=== PATIENT | male | born 1940 | race Caucasian/White ===

== ENCOUNTER 2016-09-02 10:27 | Outpatient (CLI) | payer MEDICARE, BC ==
[2016-09-02 14:07] LABS: HEMOGLOBIN A1C 0.66 g/dL
[2016-09-02 14:12] LABS: ALBUMIN/GLOBULIN RATIO 1.6 (1.0-2.2); BILIRUBIN,TOTAL 0.8 mg/dL (0.2-1.0); BUN - BLOOD UREA NITROGEN 22 mg/dL (6-20); CALCIUM 9.1 mg/dL (8.5-10.3); CARBON DIOXIDE - CO2 25 mmol/L (21-32); CHLORIDE 108 mmol/L (101-111); CHOL/HDL RATIO 5.2 (<5.0); CHOLESTEROL 156 mg/dL; GFR - MDRD 72 (>89); GLUCOSE 107 mg/dL (70-100); HDL CHOLESTEROL 30 mg/dL; LDL/HDL RATIO 3.5 (<3.6); POTASSIUM 4.2 mmol/L (3.5-5.0); SODIUM 140 mmol/L (135-145); TOTAL PROTEIN 6.9 g/dL (6.7-8.2); TRIGLYCERIDES 111 mg/dL; VLDL CHOLESTEROL 22 mg/dL
== END 2016-09-02 10:28 | disposition home or self-care (01) ==
LOC: LAB.WCP 10:27
PROVIDERS: ATTEND Family Medicine
DX: R73.01 Impaired fasting glucose (principal); E78.9 Disorder of lipoprotein metabolism, unspecified
CPT/HCPCS: 36415; 80053; 80061; 83036

== ENCOUNTER 2016-09-09 05:11 | Outpatient (CLI) | payer MEDICARE, BC | END 2016-09-09 05:12 | disposition home or self-care (01) | LOC: LAB.R 05:11 | PROVIDERS: ATTEND Family Medicine | DX: R35.8 Other polyuria (principal) | CPT/HCPCS: 87086 ==

== ENCOUNTER 2016-09-24 09:43 | Outpatient (CLI) | payer MEDICARE, BC ==
[2016-09-24 13:17] LABS: BASOPHILS % (AUTO) 0.5 %; EOSINOPHILS # (AUTO) 0.1 10^3/uL (0.0-0.7); HCT - HEMATOCRIT 52.1 % (42.0-52.0); HGB - HEMOGLOBIN 17.5 g/dL (14.0-18.0); LYMPHOCYTES # (AUTO) 2.7 10^3/uL (1.5-3.5); LYMPHOCYTES % (AUTO) 26.9 %; MEAN CORPUSCULAR HEMOGLOBIN 30.9 pg (27.0-31.0); MEAN CORPUSCULAR HGB CONC 33.6 g/dL (32.0-36.0); MEAN CORPUSCULAR VOLUME 91.9 fL (80.0-94.0); MEAN PLATELET VOLUME 11.1 fL (7.4-11.4); MONOCYTES # (AUTO) 0.7 10^3/uL (0.0-1.0); NEUTROPHILS # (AUTO) 6.4 10^3/uL (1.5-6.6); NEUTROPHILS % (AUTO) 64.6 %; NUCLEATED RED BLOOD CELLS AUTO 0.1 /100WBC; RED BLOOD COUNT 5.67 10^6/uL (4.70-6.10); RED CELL DISTRIBUTION WIDTH 13.5 % (12.0-15.0); UNCORRECTED WHITE BLOOD COUNT 9.9 x10^3/uL; WHITE BLOOD COUNT 9.9 x10^3/uL (4.8-10.8)
[2016-09-24 13:52] LABS: ALBUMIN/GLOBULIN RATIO 1.3 (1.0-2.2); BILIRUBIN,TOTAL 0.8 mg/dL (0.2-1.0); CALCIUM 9.3 mg/dL (8.5-10.3); POTASSIUM 3.7 mmol/L (3.5-5.0); TOTAL PROTEIN 7.4 g/dL (6.7-8.2)
== END 2016-09-24 09:44 | disposition home or self-care (01) ==
LOC: LAB.WCP 09:43
PROVIDERS: ATTEND Family Medicine
DX: R35.8 Other polyuria (principal); I10 Essential (primary) hypertension; R73.01 Impaired fasting glucose; R53.83 Other fatigue
CPT/HCPCS: 36415; 80053; 85025

== ENCOUNTER 2016-10-03 09:12 | Outpatient (CLI) | payer MEDICARE, BC ==
--- NOTE | 2016-10-03 14:00 | CT Report ---
EXAM: CT HEAD EXAM DATE: 10/03/2016 09:27 AM. CLINICAL HISTORY: Elevated liver enzymes, claudication and carotid bruit. COMPARISON: None. TECHNIQUE: Multiaxial CT images were obtained from the foramen magnum to the vertex. IV contrast: Non e. Reformats: Coronal. In accordance with CT protocol optimization, one or more of the following dose reduction techniques w ere utilized for this exam: automated exposure control, adjustment of mA and/or KV based on patient s ize, or use of iterative reconstructive technique. FINDINGS: Parenchyma: No intracranial bleed or mass effect. Moderate low density in the deep white matter. Extraaxial Spaces: Normal for age. No subdural or epidural collections identified. Ventricles: Normal in size and position. Sinuses: Imaged paranasal sinuses, orbits, and mastoids show no significant abnormality. Bones: No evidence of fracture or calvarial defect. Other: None. IMPRESSION: 1. No intracranial bleed or mass effect. 2. Nonspecific white matter disease, likely microangiopathy. [facility] Referring Provider Line: [phone] SITE ID: [id number]
--- NOTE | 2016-10-04 05:49 | Ultrasound Report ---
EXAM: CAROTID DOPPLER ULTRASOUND EXAM DATE: 10/03/2016 10:55 AM. CLINICAL HISTORY: Dizziness/vertigo, carotid bruit. COMPARISON: None. TECHNIQUE: Real-time sonographic vascular imaging was performed by the healthcare liaison through the caroti d arterial system with a linear transducer utilizing color-flow, Doppler flow and spectral analysis. 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 FINDINGS: Right: RCCA Prox: PSV 64 cm/sec. RCCA Dist: PSV 44 cm/sec, EDV 12 cm/sec. RECA: PSV 45 cm/sec. R Bulb: PSV 33 cm/sec, EDV 12 cm/sec, ICA/CCA ratio 0.75. LESA Prox: PSV 67 cm/sec, EDV 13 cm/sec, ICA/CCA ratio 1.5. LESA Mid: PSV 55 cm/sec, EDV 14 cm/sec, ICA/CCA ratio 1.2. LESA Dist: PSV 38 cm/sec, EDV 17 cm/sec, ICA/CCA ratio 1.3. RVA: PSV 41 cm/sec. RVA flow direction: Antegrade. Left: LCCA Prox: PSV 65 cm/sec. LCCA Dist: PSV 37 cm/sec, EDV 0.2 cm/sec. LECA: PSV 33 cm/sec. L Bulb: PSV 28 cm/sec, EDV 9 cm/sec, ICA/CCA ratio 0.79. LICA Prox: PSV 91 cm/sec, EDV 18 cm/sec, ICA/CCA ratio 2.4. LICA Mid: PSV 75 cm/sec, EDV 17 cm/sec, ICA/CCA ratio 2.0. LICA Dist: PSV 78 cm/sec, EDV 15 cm/sec, ICA/CCA ratio 2.1. LVA: PSV 32 cm/sec. LVA flow direction: Antegrade. Other: Mildatherosclerotic disease bilaterally. IMPRESSION: Mild atherosclerotic disease bilaterally without hemodynamically significant stenoses see n in either carotid arterial system. Validated velocity measurements with angiographic measurements and velocity criteria are extrapolated from diameter data as defined by the Society of Radiologists in Ultrasound Consensus Conference Radi ology 2003; 229;340-346. [facility] Referring Provider Line: [phone] SITE ID: [id number]
== END 2016-10-03 09:13 | disposition home or self-care (01) ==
LOC: DI 09:12
PROVIDERS: ATTEND Family Medicine
DX: R42 Dizziness and giddiness (principal); R90.82 White matter disease, unspecified
CPT/HCPCS: 70450; 93880

== ENCOUNTER 2017-10-13 18:42 | Emergency (ER) | payer MEDICARE, BC ==
[2017-10-13 19:19] LABS: BASOPHILS # (AUTO) 0.1 10^3/uL (0.0-0.1); BASOPHILS % (AUTO) 0.7 %; EOSINOPHILS # (AUTO) 0.1 10^3/uL (0.0-0.7); EOSINOPHILS % (AUTO) 1.8 %; HGB - HEMOGLOBIN 18.1 g/dL (14.0-18.0); LYMPHOCYTES # (AUTO) 2.1 10^3/uL (1.5-3.5); LYMPHOCYTES % (AUTO) 28.5 %; MEAN CORPUSCULAR HGB CONC 33.4 g/dL (32.0-36.0); MEAN CORPUSCULAR VOLUME 92.8 fL (80.0-94.0); MEAN PLATELET VOLUME 10.2 fL (7.4-11.4); MONOCYTES # (AUTO) 0.9 10^3/uL (0.0-1.0); MONOCYTES % (AUTO) 13.1 %; NEUTROPHILS % (AUTO) 55.9 %; PLT - PLATELET COUNT 182 10^3/uL (130-450); RED BLOOD COUNT 5.82 10^6/uL (4.70-6.10); RED CELL DISTRIBUTION WIDTH 13.6 % (12.0-15.0); WHITE BLOOD COUNT 7.2 x10^3/uL (4.8-10.8)
[2017-10-13 19:24] VITALS: BP 142/100
[2017-10-13 19:33] LABS: ALBUMIN 4.6 g/dL (3.2-5.5); ALBUMIN/GLOBULIN RATIO 1.4 (1.0-2.2); BILIRUBIN,TOTAL 0.8 mg/dL (0.2-1.0); CALCIUM 9.5 mg/dL (8.5-10.3); CREATININE 0.9 mg/dL (0.6-1.2)
--- NOTE | 2017-10-13 20:08 | XRAY Report ---
Procedure Date: 10/13/2017 Accession Number: [id number] / [id number] Procedure: XR - Chest 2 View X-Ray CPT Code: 78064 FULL RESULT: EXAM: CHEST RADIOGRAPHY EXAM DATE: 10/13/2017 07:47 PM. CLINICAL HISTORY: Productive cough. COMPARISON: Chest 04/02/2012. TECHNIQUE: 2 views. FINDINGS: Lungs/Pleura: No focal opacities evident. No pleural effusion. No pneumothorax. Normal volumes. Mediastinum: Normal heart size. Tortuous descending thoracic aorta again noted. IMPRESSION: No acute cardiopulmonary disease seen. [facility]
[2017-10-13] MEDS ORDERED: ALBUTEROL NEB 2.5 MG/3 ML INH STA (21:14)
[2017-10-13] MEDS ORDERED: guaiFENesin/CODEINE 5 ML UDC PO STA (21:45)
--- NOTE | 2017-10-13 21:57 | ED Physician Documentation ---
PD HPI DYSPNEA - Stated complaint Stated Complaint: HBP CONCERNS - Chief complaint Chief Complaint: Resp - History obtained from History obtained from: Patient - History of Present Illness Timing - onset: How many days ago (3) Timing - details: Gradual onset, Intermittant Associated symptoms: Cough. No: Fever, Wheezing, Chest pain / discomfort Similar symptoms before: No diagnosis Recently seen: Not recently seen - Additional information Additional information: Patient is a 77 year old male who is presenting to the emergency department for cough. patient states that it has been going on for the last few days. patient states that it keeps him up at night and he just trying to get help to get him sleep. 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 Review of Systems Ten Systems: 10 systems reviewed and negative Constitutional: denies: Fever, Chills Respiratory: reports: Dyspnea, Cough. denies: Wheezing PD PAST MEDICAL HISTORY - Past Medical History Past Medical History: Yes Cardiovascular: Hypertension Psych: Anxiety - Past Surgical History Past Surgical History: Yes General: Cholecystectomy - Present Medications Home Medications: Ambulatory Orders Medication Instructions Recorded Confirmed Benzonatate [Tessalon Perle] 100 mg PO TID #20 capsule 10/13/17 Codeine Phosphate/Guaifenesin 5 ml PO DAILY #100 ml 10/13/17 [Guaifen-Codeine 100-10 mg/5 ml] Lisinopril [Zestril] 40 mg PO 10/13/17 Metoprolol Tartrate 50 mg PO 10/13/17 PARoxetine [Paxil] 20 mg PO DAILY 10/13/17 10/13/17 amLODIPine [Norvasc] 10 mg PO DAILY 10/13/17 10/13/17 - Allergies Allergies/Adverse Reactions: Allergies Allergy/AdvReac Type Severity Reaction Status Date / Time No Known Drug Allergies Allergy Verified 10/13/17 19:26 - Social History Does the pt smoke?: No Smoking Status: Never smoker Does the pt drink ETOH?: No Does the pt have substance abuse?: No - Immunizations Immunizations are current?: Yes - POLST Patient has POLST: No PD ED PE NORMAL - Vitals Vital signs reviewed: Yes - General General: Alert and oriented X 3, No acute distress - HEENT HEENT: Atraumatic - Neck Neck: Supple, no meningeal sign - Cardiac Cardiac: RRR, No murmur - Respiratory Respiratory: Clear bilaterally - Abdomen Abdomen: Soft, Non tender, Non distended - Derm Derm: Normal color, Warm and dry, No rash - Extremities Extremities: No deformity, No edema - Neuro Neuro: Alert and oriented X 3, 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, No motor deficit, Normal speech Eye Opening: Spontaneous Motor: Obeys Commands Verbal: Oriented GCS Score: 15 Results - Vitals Vitals: Vital Signs - 24 hr 10/13/17 10/13/17 19:21 21:38 Temperature 36.8 C Heart Rate 58 L 61 Respiratory 18 18 Rate Blood Pressure 142/100 H O2 Saturation 99 Oxygen O2 Source Room air - Labs Labs: Laboratory Tests 10/13/17 10/13/17 10/13/17 19:13 19:13 19:13 WBC 7.2 RBC 5.82 Hgb 18.1 H Hct 54.0 H MCV 92.8 MCH 31.0 MCHC 33.4 RDW 13.6 Plt Count 182 MPV 10.2 Neut # (Auto) 4.0 Lymph # (Auto) 2.1 [place] # (Auto) 0.9 Eos # (Auto) 0.1 Baso # (Auto) 0.1 Absolute Nucleated RBC 0.00 Nucleated RBC % 0.0 Sodium 138 Potassium 4.1 Chloride 104 Carbon Dioxide 25 Anion Gap 9.0 BUN 12 Creatinine 0.9 Estimated GFR (MDRD) 81 L Glucose 142 H Calcium 9.5 Total Bilirubin 0.8 AST 26 ALT 41 Alkaline Phosphatase 102 Troponin I < 0.04 B-Natriuretic Peptide Total Protein 8.0 Albumin 4.6 Globulin 3.4 Albumin/Globulin Ratio 1.4 Lipase 20 L 10/13/17 19:13 WBC RBC Hgb Hct MCV MCH MCHC RDW Plt Count MPV Neut # (Auto) Lymph # (Auto) [place] # (Auto) Eos # (Auto) Baso # (Auto) Absolute Nucleated RBC Nucleated RBC % Sodium Potassium Chloride Carbon Dioxide Anion Gap BUN Creatinine Estimated GFR (MDRD) Glucose Calcium Total Bilirubin AST ALT Alkaline Phosphatase Troponin I B-Natriuretic Peptide 28 Total Protein Albumin Globulin Albumin/Globulin Ratio Lipase - Rads (name of study) chest x-ray Radiology: Final report received (normal) PD MEDICAL DECISION MAKING - ED course Complexity details: reviewed old records, reviewed results, re-evaluated patient , considered differential, d/w patient ED course: Patient was seen and examined at bedside. patient was well appearing and in no acute distress. labs were drawn and imaging was ordered. patient was treated with a duoneb with no change in his cough. patient's diagnostics were otherwise within normal limits. patient required no further inpatient work up at this time and was stable for discharge with outpatient follow up. - Sepsis Event Vital Signs: Vital Signs - 24 hr 10/13/17 10/13/17 19:21 21:38 Temperature 36.8 C Heart Rate 58 L 61 Respiratory 18 18 Rate Blood Pressure 142/100 H O2 Saturation 99 Oxygen O2 Source Room air Departure - Departure Disposition: Home, Self Care Clinical Impression: Cough Condition: Good Instructions: Cold Virus Follow-Up: Russ Menezes MD [Primary Care Provider] - Within 3 Days Prescriptions: Benzonatate [Tessalon Perle] 100 mg PO TID #20 capsule Codeine Phosphate/Guaifenesin [Guaifen-Codeine 100-10 mg/5 ml] 5 ml PO DAILY # 100 ml Comments: Your diagnostics today were within normal limits. there were no major abnormalities on you x-ray or your blood work. You have been prescribed two types of medications. The medicine with codeine you should only take at night before bed. the tessalon you can take at any point during the day. You should follow up with your doctor if your symptoms don't improve over the next few days. You may return to the emergency department at any time for new, worsening or uncontrollable symptoms. Discharge Date/Time: 10/13/17 22:08
== END 2017-10-13 22:08 | disposition home or self-care (01) ==
LOC: ED 18:42
DX: R05 Cough (principal); I10 Essential (primary) hypertension; F41.9 Anxiety disorder, unspecified
CPT/HCPCS: 36415; 71046; 80053; 83690; 83880; 84484; 85025; 94640; 99283; A9270

== ENCOUNTER 2017-11-05 21:18 | Emergency (ER) | payer MEDICARE, BC ==
--- NOTE | 2017-11-05 22:58 | ED Physician Documentation ---
PD HPI ABD PAIN - Stated complaint Stated Complaint: ABD PX/SHAKY - Chief complaint Chief Complaint: General - History obtained from History obtained from: Patient, Family - History of Present Illness Timing - onset: How many days ago (3-4) Timing - details: Intermittant Quality: Dull Location: RUQ, Epigastric Improved by: Other (no ameliorating factors) Worsened by: Other (no exacerbating factors) Associated symptoms: No: Fever, Nausea, Vomiting, Diarrhea, Constipation, Dysuria Recently seen: Emergency Dept - Additional information Additional information: patients chief complaint is that he is unable to sleep for 3-4 days. When I ask why he cant sleep, he says he just closes his eyes but cannot fall asleep. He also c/o episodes of epigastric and RUQ abdominal discomfort, which he can only describe as nerve pain, although he says this is not what is preventing him from sleeping. he says he has had similar nerve pain before, episodically over 10 years. he was T+R from this ED three weeks ago for cough, rx for benzonatate and Robitussin AC. He says the cough has nearly resolved, and that the cough is also not contributing to his lack of sleep. He says he has been taking the codeine cough syrup to facilitate sleep without results. Review of Systems Constitutional: reports: Reviewed and negative Cardiac: reports: Reviewed and negative Respiratory: reports: Cough. denies: Dyspnea GI: reports: Abdominal Pain. denies: Nausea, Vomiting, Constipation, Diarrhea : denies: Dysuria, Frequency PD PAST MEDICAL HISTORY - Past Medical History Cardiovascular: Hypertension Psych: Anxiety - Past Surgical History Past Surgical History: Yes General: Cholecystectomy - Present Medications Home Medications: Ambulatory Orders Medication Instructions Recorded Confirmed Benzonatate [Tessalon Perle] 100 mg PO TID #20 capsule 10/13/17 Codeine Phosphate/Guaifenesin 5 ml PO DAILY #100 ml 10/13/17 [Guaifen-Codeine 100-10 mg/5 ml] Lisinopril [Zestril] 40 mg PO 10/13/17 Metoprolol Tartrate 50 mg PO 10/13/17 PARoxetine [Paxil] 20 mg PO DAILY 10/13/17 10/13/17 amLODIPine [Norvasc] 10 mg PO DAILY 06/27/18 06/27/18 LORazepam [Ativan] 1 - 2 mg PO HS PRN #20 tablet 11/06/17 - Allergies Allergies/Adverse Reactions: Allergies Allergy/AdvReac Type Severity Reaction Status Date / Time No Known Drug Allergies Allergy Verified 11/05/17 21:28 - Social History Does the pt smoke?: No Smoking Status: Never smoker Does the pt drink ETOH?: No Does the pt have substance abuse?: No - Immunizations Immunizations are current?: Yes - POLST Patient has POLST: No PD ED PE NORMAL - Vitals Vital signs reviewed: Yes - General General: Alert and oriented X 3, No acute distress, Well developed/nourished - HEENT HEENT: PERRL, EOMI, Moist mucous membranes - Cardiac Cardiac: RRR - Respiratory Respiratory: No respiratory distress, Clear bilaterally - Abdomen Abdomen: Normal bowel sounds, Soft, Non tender, Non distended - Derm Derm: Normal color, Warm and dry - Neuro Neuro: Alert and oriented X 3, 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, No motor deficit, No sensory deficit, Normal speech Eye Opening: Spontaneous Motor: Obeys Commands Verbal: Oriented GCS Score: 15 Results - Vitals Vitals: Oxygen O2 Source Room air - Labs Labs: Laboratory Tests 11/05/17 11/05/17 23:41 23:41 WBC 12.0 H RBC 5.20 Hgb 15.9 Hct 47.6 MCV 91.5 MCH 30.6 MCHC 33.4 RDW 13.5 Plt Count 171 MPV 10.5 Neut # (Auto) 6.9 H Lymph # (Auto) 3.8 H [place] # (Auto) 0.9 Eos # (Auto) 0.1 Baso # (Auto) 0.1 Absolute Nucleated RBC 0.01 Nucleated RBC % 0.1 Sodium 138 Potassium 3.8 Chloride 103 Carbon Dioxide 28 Anion Gap 7.0 BUN 19 Creatinine 1.0 Estimated GFR (MDRD) 72 L Glucose 126 H Calcium 9.1 Total Bilirubin 0.9 AST 23 ALT 44 Alkaline Phosphatase 86 Total Protein 6.9 Albumin 4.0 Globulin 2.9 Albumin/Globulin Ratio 1.4 Lipase 24 PD MEDICAL DECISION MAKING - ED course Complexity details: reviewed old records, reviewed results, re-evaluated patient , considered differential, d/w patient, d/w family ED course: reassuring lab test results. during H+P and reevaluation, patient repeatedly returns to request for something to knock me out so I can get some sleep. He says he was prescribed something to help with sleep several years ago by his PMD that worked well, but unfortunately he cannot recall what it was. Will rx lorazepam and dose given in ED prior to d/c (spouse is driving patient home). - Sepsis Event Vital Signs: Oxygen O2 Source Room air Departure - Departure Disposition: Home, Self Care Clinical Impression: Insomnia Qualifiers: Insomnia type: unspecified Qualified Code(s): G47.00 - Insomnia, unspecified Abdominal pain Qualifiers: Abdominal location: generalized Qualified Code(s): R10.84 - Generalized abdominal pain Condition: Good Instructions: ED Insomnia, ED Abdominal Pain Unkn Cause Male Follow-Up: LOKESH DUPONT MD [Primary Care Provider] - Within 1 week Prescriptions: LORazepam [Ativan] 1 - 2 mg PO HS PRN #20 tablet PRN Reason: Insomnia Discharge Date/Time: 11/06/17 01:19
[2017-11-05 23:52] LABS: BASOPHILS # (AUTO) 0.1 10^3/uL (0.0-0.1); BASOPHILS % (AUTO) 1.1 %; EOSINOPHILS # (AUTO) 0.1 10^3/uL (0.0-0.7); EOSINOPHILS % (AUTO) 1.2 %; HGB - HEMOGLOBIN 15.9 g/dL (14.0-18.0); LYMPHOCYTES # (AUTO) 3.8 10^3/uL (1.5-3.5); LYMPHOCYTES % (AUTO) 32.1 %; MEAN CORPUSCULAR HEMOGLOBIN 30.6 pg (27.0-31.0); MEAN CORPUSCULAR HGB CONC 33.4 g/dL (32.0-36.0); MEAN CORPUSCULAR VOLUME 91.5 fL (80.0-94.0); MEAN PLATELET VOLUME 10.5 fL (7.4-11.4); MONOCYTES # (AUTO) 0.9 10^3/uL (0.0-1.0); MONOCYTES % (AUTO) 7.7 %; NEUTROPHILS # (AUTO) 6.9 10^3/uL (1.5-6.6); NEUTROPHILS % (AUTO) 57.9 %; PLT - PLATELET COUNT 171 10^3/uL (130-450); RED CELL DISTRIBUTION WIDTH 13.5 % (12.0-15.0)
[2017-11-06 00:01] LABS: ALBUMIN/GLOBULIN RATIO 1.4 (1.0-2.2); BILIRUBIN,TOTAL 0.9 mg/dL (0.2-1.0); CALCIUM 9.1 mg/dL (8.5-10.3); TOTAL PROTEIN 6.9 g/dL (6.7-8.2)
[2017-11-06 00:34] VITALS: BP 149/88
[2017-11-06] MEDS ORDERED: LORazepam 0.5 MG TABLET PO STA (01:09)
== END 2017-11-06 01:19 | disposition home or self-care (01) ==
LOC: ED 21:18
DX: G47.00 Insomnia, unspecified (principal); R10.84 Generalized abdominal pain
CPT/HCPCS: 36415; 80053; 83690; 85025; 99283; A9270

== ENCOUNTER 2019-09-05 08:00 | Outpatient (CLI) | payer MEDICARE, OTHER ==
[2019-09-05 13:47] LABS: BASOPHILS % (AUTO) 0.4 %; EOSINOPHILS # (AUTO) 0.1 10^3/uL (0.0-0.7); EOSINOPHILS % (AUTO) 1.6 %; HGB - HEMOGLOBIN 17.1 g/dL (14.0-18.0); LYMPHOCYTES # (AUTO) 2.9 10^3/uL (1.5-3.5); LYMPHOCYTES % (AUTO) 37.9 %; MEAN CORPUSCULAR HEMOGLOBIN 31.2 pg (27.0-31.0); MEAN CORPUSCULAR HGB CONC 33.1 g/dL (32.0-36.0); MEAN CORPUSCULAR VOLUME 94.2 fL (80.0-94.0); MONOCYTES # (AUTO) 0.7 10^3/uL (0.0-1.0); MONOCYTES % (AUTO) 8.8 %; NEUTROPHILS # (AUTO) 3.9 10^3/uL (1.5-6.6); PLT - PLATELET COUNT 187 10^3/uL (130-450); RED BLOOD COUNT 5.48 10^6/uL (4.70-6.10); RED CELL DISTRIBUTION WIDTH 13.9 % (12.0-15.0); WHITE BLOOD COUNT 7.7 x10^3/uL (4.8-10.8)
[2019-09-05 14:17] LABS: ALBUMIN 4.2 g/dL (3.2-5.5); ALBUMIN/GLOBULIN RATIO 1.3 (1.0-2.2); ALKALINE PHOSPHATASE 95 IU/L (42-121); ALT ALANINE AMINOTRANSFERASE 41 IU/L (10-60); AST ASPARTATE AMINOTRANSFERASE 24 IU/L (10-42); BILIRUBIN,TOTAL 0.9 mg/dL (0.2-1.0); BUN - BLOOD UREA NITROGEN 24 mg/dL (6-20); CALCIUM 9.4 mg/dL (8.5-10.3); CARBON DIOXIDE - CO2 25 mmol/L (21-32); CHLORIDE 107 mmol/L (101-111); CHOL/HDL RATIO 4.5 (<5.0); CHOLESTEROL 158 mg/dL; CREATININE 0.9 mg/dL (0.6-1.2); GLUCOSE 117 mg/dL (70-100); HDL CHOLESTEROL 35 mg/dL; LDL CHOLESTEROL,CALCULATED 100 mg/dL; LDL/HDL RATIO 2.9 (<3.6); SODIUM 142 mmol/L (135-145); TOTAL PROTEIN 7.4 g/dL (6.7-8.2); VLDL CHOLESTEROL 23 mg/dL
[2019-09-05 14:20] LABS: HB2 TOTAL 18.2 g/dL; HEMOGLOBIN A1C 0.73 g/dL; HEMOGLOBIN A1C % 5.8 % (4.6-6.2)
== END 2019-09-05 23:59 | disposition home or self-care (01) ==
LOC: LAB.WCP 08:00
PROVIDERS: ATTEND Family Medicine
DX: I10 Essential (primary) hypertension (principal); E78.5 Hyperlipidemia, unspecified; R73.01 Impaired fasting glucose
CPT/HCPCS: 36415; 80053; 80061; 83036; 83721; 85025

== ENCOUNTER 2020-09-17 08:53 | Outpatient (CLI) | payer MEDICARE, OTHER ==
[2020-09-17 09:17] LABS: BASOPHILS % (AUTO) 0.5 %; EOSINOPHILS # (AUTO) 0.1 10^3/uL (0.0-0.7); EOSINOPHILS % (AUTO) 1.4 %; HGB - HEMOGLOBIN 16.5 g/dL (14.0-18.0); LYMPHOCYTES # (AUTO) 3.1 10^3/uL (1.5-3.5); LYMPHOCYTES % (AUTO) 36.8 %; MEAN CORPUSCULAR HEMOGLOBIN 30.6 pg (27.0-31.0); MEAN CORPUSCULAR VOLUME 92.8 fL (80.0-94.0); MEAN PLATELET VOLUME 12.4 fL (7.4-11.4); MONOCYTES # (AUTO) 0.8 10^3/uL (0.0-1.0); NEUTROPHILS # (AUTO) 4.3 10^3/uL (1.5-6.6); NEUTROPHILS % (AUTO) 51.2 %; PLT - PLATELET COUNT 175 10^3/uL (130-450); RED BLOOD COUNT 5.39 10^6/uL (4.70-6.10); RED CELL DISTRIBUTION WIDTH 14.1 % (12.0-15.0); WHITE BLOOD COUNT 8.4 x10^3/uL (4.8-10.8)
[2020-09-17 09:50] LABS: THYROID STIMULATING HORMONE 1.6 uIU/mL (0.34-5.60)
[2020-09-17 10:50] LABS: ALBUMIN 4.2 g/dL (3.2-5.5); ALBUMIN/GLOBULIN RATIO 1.5 (1.0-2.2); ALKALINE PHOSPHATASE 95 IU/L (42-121); ALT ALANINE AMINOTRANSFERASE 30 IU/L (10-60); AST ASPARTATE AMINOTRANSFERASE 18 IU/L (10-42); BILIRUBIN,TOTAL 0.8 mg/dL (0.2-1.0); BUN - BLOOD UREA NITROGEN 23 mg/dL (6-20); CARBON DIOXIDE - CO2 26 mmol/L (21-32); CHLORIDE 103 mmol/L (101-111); CHOLESTEROL 175 mg/dL; CREATININE 0.9 mg/dL (0.6-1.2); GFR - MDRD 81 (>89); GLUCOSE 117 mg/dL (70-100); HDL CHOLESTEROL 29 mg/dL; LDL CHOLESTEROL,CALCULATED 119 mg/dL; LDL/HDL RATIO 4.1 (<3.6); POTASSIUM 3.9 mmol/L (3.5-5.0); SODIUM 138 mmol/L (135-145); TRIGLYCERIDES 136 mg/dL; VLDL CHOLESTEROL 27 mg/dL
== END 2020-09-17 08:54 | disposition home or self-care (01) ==
LOC: LAB 08:53
PROVIDERS: ATTEND Family Medicine
DX: Z00.00 Encounter for general adult medical examination without abnormal findings (principal); I10 Essential (primary) hypertension; E78.5 Hyperlipidemia, unspecified; N40.1 Benign prostatic hyperplasia with lower urinary tract symptoms; N13.8 Other obstructive and reflux uropathy
CPT/HCPCS: 36415; 80053; 80061; 83721; 84153; 84443; 85025

== ENCOUNTER 2021-10-25 08:23 | Outpatient (CLI) | payer MEDICARE, OTHER ==
[2021-10-25 09:38] LABS: CHOL/HDL RATIO 4.2 (<5.0); CHOLESTEROL 130 mg/dL; HDL CHOLESTEROL 31 mg/dL; LDL CHOLESTEROL,CALCULATED 75 mg/dL; LDL/HDL RATIO 2.4 (<3.6); TRIGLYCERIDES 121 mg/dL; VLDL CHOLESTEROL 24 mg/dL
== END 2021-10-25 08:24 | disposition home or self-care (01) ==
LOC: LAB 08:23
PROVIDERS: ATTEND Family Medicine
DX: I10 Essential (primary) hypertension (principal)
CPT/HCPCS: 36415; 80061; 83721

== ENCOUNTER 2022-09-09 08:28 | Outpatient (CLI) | payer MEDICARE, OTHER ==
[2022-09-09 08:57] LABS: BASOPHILS % (AUTO) 0.5 %; EOSINOPHILS # (AUTO) 0.1 10^3/uL (0.0-0.7); EOSINOPHILS % (AUTO) 1.4 %; HCT - HEMATOCRIT 49.2 % (42.0-52.0); HGB - HEMOGLOBIN 16.3 g/dL (14.0-18.0); LYMPHOCYTES # (AUTO) 2.6 10^3/uL (1.5-3.5); LYMPHOCYTES % (AUTO) 35.5 %; MEAN CORPUSCULAR HEMOGLOBIN 30.7 pg (27.0-31.0); MEAN CORPUSCULAR HGB CONC 33.1 g/dL (32.0-36.0); MEAN CORPUSCULAR VOLUME 92.7 fL (80.0-94.0); MONOCYTES # (AUTO) 0.7 10^3/uL (0.0-1.0); NEUTROPHILS # (AUTO) 3.9 10^3/uL (1.5-6.6); NEUTROPHILS % (AUTO) 53.3 %; PLT - PLATELET COUNT 176 10^3/uL (130-450); RED BLOOD COUNT 5.31 10^6/uL (4.70-6.10); RED CELL DISTRIBUTION WIDTH 13.8 % (12.0-15.0); WHITE BLOOD COUNT 7.4 x10^3/uL (4.8-10.8)
[2022-09-09 09:19] LABS: ALBUMIN 4.2 g/dL (3.2-5.5); ALBUMIN/GLOBULIN RATIO 1.3 (1.0-2.2); ALKALINE PHOSPHATASE 75 IU/L (42-121); ALT ALANINE AMINOTRANSFERASE 27 IU/L (10-60); AST ASPARTATE AMINOTRANSFERASE 17 IU/L (10-42); BILIRUBIN,TOTAL 1.1 mg/dL (0.2-1.0); BUN - BLOOD UREA NITROGEN 18 mg/dL (6-20); CALCIUM 8.8 mg/dL (8.5-10.3); CARBON DIOXIDE - CO2 28 mmol/L (21-32); CHLORIDE 108 mmol/L (101-111); CHOLESTEROL 129 mg/dL; CREATININE 0.9 mg/dL (0.6-1.2); GFR - MDRD 80 (>89); GLUCOSE 130 mg/dL (70-100); HDL CHOLESTEROL 32 mg/dL; LDL CHOLESTEROL,CALCULATED 72 mg/dL; LDL/HDL RATIO 2.3 (<3.6); POTASSIUM 4.1 mmol/L (3.5-5.0); SODIUM 142 mmol/L (135-145); TOTAL PROTEIN 7.4 g/dL (6.7-8.2); TRIGLYCERIDES 123 mg/dL; VLDL CHOLESTEROL 25 mg/dL
[2022-09-09 09:28] LABS: THYROID STIMULATING HORMONE 1.26 uIU/mL (0.34-5.60)
[2022-09-09 11:41] LABS: ESTIMATED AVERAGE GLUCOSE 131 mg/dL (70-100); HEMOGLOBIN A1c% 6.2 % (4.27-6.07)
== END 2022-09-09 08:29 | disposition home or self-care (01) ==
LOC: LAB 08:28
PROVIDERS: ATTEND Family Medicine
DX: I10 Essential (primary) hypertension (principal); Z12.5 Encounter for screening for malignant neoplasm of prostate; E11.39 Type 2 diabetes mellitus with other diabetic ophthalmic complication; N40.1 Benign prostatic hyperplasia with lower urinary tract symptoms; N13.8 Other obstructive and reflux uropathy
CPT/HCPCS: 36415; 80053; 80061; 83036; 84443; 85025; G0103; 83721; 84153

== ENCOUNTER 2023-04-21 20:28 | Emergency (ER) | payer MEDICARE, OTHER ==
[2023-04-21 21:00] LABS: BASOPHILS % (AUTO) 0.2 %; EOSINOPHILS # (AUTO) 0.2 10^3/uL (0.0-0.7); EOSINOPHILS % (AUTO) 2.8 %; HCT - HEMATOCRIT 49.7 % (42.0-52.0); HGB - HEMOGLOBIN 16.3 g/dL (14.0-18.0); LYMPHOCYTES # (AUTO) 2.9 10^3/uL (1.5-3.5); LYMPHOCYTES % (AUTO) 44.4 %; MEAN CORPUSCULAR HEMOGLOBIN 29.4 pg (27.0-31.0); MEAN CORPUSCULAR HGB CONC 32.8 g/dL (32.0-36.0); MEAN CORPUSCULAR VOLUME 89.7 fL (80.0-94.0); MEAN PLATELET VOLUME 11.9 fL (7.4-11.4); MONOCYTES # (AUTO) 0.9 10^3/uL (0.0-1.0); MONOCYTES % (AUTO) 13.4 %; NEUTROPHILS # (AUTO) 2.5 10^3/uL (1.5-6.6); NEUTROPHILS % (AUTO) 38.7 %; PLT - PLATELET COUNT 206 10^3/uL (130-450); RED BLOOD COUNT 5.54 10^6/uL (4.70-6.10); RED CELL DISTRIBUTION WIDTH 13.6 % (12.0-15.0); WHITE BLOOD COUNT 6.5 x10^3/uL (4.8-10.8)
[2023-04-21 21:01] LABS: VBG BASE EXCESS -0.3 mmol/L (-2 - +2); VBG HCO3 23.9 mmol/L (23-28); VBG OXYGEN SATURATION 84.6 % (60-80); VBG PCO2 38.1 mmHg (41-51); VBG PH 7.416 (7.31-7.41); VBG PO2 48.9 mmHg (25-47); VBG TOTAL CO2 25.1 mmol/L (24-29)
[2023-04-21 21:19] LABS: ALBUMIN 4.1 g/dL (3.2-5.5); ALBUMIN/GLOBULIN RATIO 1.5 (1.0-2.2); BILIRUBIN,TOTAL 0.5 mg/dL (0.2-1.0); CALCIUM 8.9 mg/dL (8.5-10.3); CREATININE 1.2 mg/dL (0.6-1.3); POTASSIUM 3.9 mmol/L (3.5-4.5); TOTAL PROTEIN 6.9 g/dL (6.4-8.9)
--- NOTE | 2023-04-21 21:26 | XRAY Report ---
PROCEDURE: Chest 2V INDICATIONS: cough, soa, weak TECHNIQUE: 2 views of the chest were acquired. COMPARISON: Chest x-ray 10/13/2018. FINDINGS: Surgical changes and devices: None. Lungs and pleura: No pleural effusions or pneumothorax. Low lung volumes resulting in prominence of the central vasculature. Otherwise, no focal pulmonary consolidations. Mediastinum: Mediastinal contours appear normal. Heart size is normal. Bones and chest wall: No suspicious bony lesions. Overlying soft tissues appear unremarkable. IMPRESSION: Low lung volumes resulting in prominence of the central vasculature. Otherwise, no focal pulmonary co nsolidations. Reviewed by: Thaddeus Rios MD on 04/21/2023 9:25 PM PST Approved by: Thaddeus Rios MD on 04/21/2023 9:25 PM PST Station ID: [id number]
--- NOTE | 2023-04-21 21:35 | ED Physician Documentation ---
PD HPI DYSPNEA - Stated complaint Stated Complaint: SOA/WEAKNESS/COUGH - Chief complaint Chief Complaint: Resp - History obtained from History obtained from: Patient, Family () - Additional information Additional information: 82yM with pmh htn p/w soa, intermittent dizziness, and weakness for the past month, worse with lying flat and with exertion. Also with cough, sore throat, rhinorrhea and night sweats X 2 weeks. no relief with advil. denies cp, leg swelling, hemoptysis, calf pain. Review of Systems Constitutional: reports: Chills, Myalgias, Fatigue. denies: Fever Ears: denies: Ear pain Nose: reports: Rhinorrhea / runny nose Throat: reports: Sore throat Cardiac: denies: Chest pain / pressure Respiratory: reports: Dyspnea, Cough GI: denies: Abdominal Pain, Nausea, Vomiting Musculoskeletal: denies: Extremity pain, Extremity swelling Neurologic: reports: Generalized weakness PD PAST MEDICAL HISTORY - Past Medical History Past Medical History: Yes Cardiovascular: Hypertension Respiratory: None Neuro: None Endocrine/Autoimmune: None GI: None : None HEENT: None Psych: Anxiety Musculoskeletal: None Derm: None - Past Surgical History Past Surgical History: Yes General: Cholecystectomy - Present Medications Home Medications: Ambulatory Orders Medication Instructions Recorded Confirmed Benzonatate [Tessalon Perle] 100 mg PO TID #20 capsule 10/13/17 04/21/23 Codeine Phosphate/Guaifenesin 5 ml PO DAILY #100 ml 10/13/17 04/21/23 [Guaifen-Codeine 100-10 mg/5 ml] Lisinopril [Zestril] 40 mg PO 10/13/17 Metoprolol Tartrate 50 mg PO 10/13/17 PARoxetine [Paxil] 20 mg PO DAILY 10/13/17 04/21/23 amLODIPine [Norvasc] 10 mg PO DAILY 10/13/17 04/21/23 LORazepam [Ativan] 1 - 2 mg PO HS PRN #20 tablet 11/06/17 04/21/23 - Allergies Allergies/Adverse Reactions: Allergies Allergy/AdvReac Type Severity Reaction Status Date / Time No Known Drug Allergies Allergy Verified 04/21/23 20:49 - Social History Does the pt smoke?: No Smoking Status: Never smoker Does the pt drink ETOH?: No Does the pt have substance abuse?: No - Immunizations Immunizations are current?: Yes - POLST Patient has POLST: No PD ED PE NORMAL - Vitals Vital signs reviewed: Yes - General General: Alert and oriented X 3, No acute distress, Other (elderly appearing) - HEENT HEENT: Atraumatic, PERRL, EOMI, Moist mucous membranes, Pharynx benign - Neck Neck: Supple, no meningeal sign - Cardiac Cardiac: Other (bradycardic rate, irregular rhythm) - Respiratory Respiratory: No respiratory distress, Clear bilaterally - Abdomen Abdomen: Non tender, Non distended - Derm Derm: Normal color, Warm and dry - Extremities Extremities: No deformity, No edema, No calf tenderness / cord - Neuro Neuro: No motor deficit, No sensory deficit - Psych Psych: Normal mood Results - Vitals Vitals: Vital Signs - 24 hr 04/21/23 04/21/23 04/21/23 20:29 21:35 23:00 Temperature 36.4 C L Heart Rate 61 51 L 58 L Respiratory 17 26 H 17 Rate Blood Pressure 161/91 H 155/95 H 148/88 H O2 Saturation 96 94 98 If not protocol 3 3 : Oxygen Flow, liters/minute 04/22/23 04/22/23 04/22/23 01:00 01:12 02:02 Temperature Heart Rate 36 L 52 L 52 L Respiratory 17 15 Rate Blood Pressure 118/86 H 116/80 O2 Saturation 98 95 97 If not protocol 3 3 : Oxygen Flow, liters/minute 04/22/23 04/22/23 04/22/23 03:14 04:20 05:50 Temperature 36.6 C 36.8 C Heart Rate 54 L 58 L 27 L Respiratory 18 19 17 Rate Blood Pressure 111/80 123/87 H 140/89 H O2 Saturation 94 94 94 If not protocol 3 3 3 : Oxygen Flow, liters/minute 04/22/23 04/22/23 06:07 06:19 Temperature 36.0 C L 36.2 C L Heart Rate 70 64 Respiratory 21 19 Rate Blood Pressure 140/88 H 136/86 H O2 Saturation 94 94 If not protocol 3 3 : Oxygen Flow, liters/minute Oxygen O2 Source Nasal cannula Oxygen Flow Rate 3 - EKG (time done) 2051 EKG releavant findings:: EKG personally interpreted by author of this note. 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) Computer interpretation: Disagree with computer (computer states mobitz II but I believe it to be mobitz I (longer and longer MS with subsequent dropped beat)) - Labs Labs: Laboratory Tests 04/21/23 04/21/23 04/21/23 20:36 20:51 20:51 WBC 6.5 RBC 5.54 Hgb 16.3 Hct 49.7 MCV 89.7 MCH 29.4 MCHC 32.8 RDW 13.6 Plt Count 206 MPV 11.9 H Neut # (Auto) 2.5 Lymph # (Auto) 2.9 [place] # (Auto) 0.9 Eos # (Auto) 0.2 Baso # (Auto) 0.0 Absolute Nucleated RBC 0.00 Nucleated RBC % 0.0 VBG pH VBG pCO2 VBG pO2 VBG HCO3 VBG Total CO2 VBG O2 Saturation VBG Base Excess Sodium 137 Potassium 3.9 Chloride 104 Carbon Dioxide 26 Anion Gap 7.0 BUN 16 Creatinine 1.2 Estimated GFR (MDRD) 58 L Glucose 121 H Calcium 8.9 Magnesium Total Bilirubin 0.5 AST 17 ALT 23 Alkaline Phosphatase 78 Troponin I High Sens B-Natriuretic Peptide Total Protein 6.9 Albumin 4.1 Globulin 2.8 Albumin/Globulin Ratio 1.5 Lipase 17 TSH Nasal Adenovirus (PCR) NOT DETECTED Nasal B. parapertussis DNA (PCR) NOT DETECTED Nasal Coronavir 229E PCR NOT DETECTED Nasal Coronavir HKU1 PCR NOT DETECTED Nasal Coronavir NL63 PCR NOT DETECTED Nasal Coronavir OC43 PCR NOT DETECTED Nasal Enterovir/Rhinovir PCR NOT DETECTED Nasal Influenza B PCR NOT DETECTED Nasal Influenza A PCR NOT DETECTED Nasal Parainfluen 1 PCR NOT DETECTED Nasal Parainfluen 2 PCR NOT DETECTED Nasal Parainfluen 3 PCR NOT DETECTED Nasal Parainfluen 4 PCR NOT DETECTED Nasal RSV (PCR) NOT DETECTED Nasal B.pertussis DNA PCR NOT DETECTED Nasal C.pneumoniae (PCR) NOT DETECTED [place] Human Metapneumo PCR NOT DETECTED Nasal M.pneumoniae (PCR) NOT DETECTED Nasal SARS-CoV-2 (PCR) DETECTED A 04/21/23 04/21/23 04/21/23 20:51 20:51 20:51 WBC RBC Hgb Hct MCV MCH MCHC RDW Plt Count MPV Neut # (Auto) Lymph # (Auto) [place] # (Auto) Eos # (Auto) Baso # (Auto) Absolute Nucleated RBC Nucleated RBC % VBG pH 7.416 H VBG pCO2 38.1 L VBG pO2 48.9 H VBG HCO3 23.9 VBG Total CO2 25.1 VBG O2 Saturation 84.6 H VBG Base Excess -0.3 Sodium Potassium Chloride Carbon Dioxide Anion Gap BUN Creatinine Estimated GFR (MDRD) Glucose Calcium Magnesium Total Bilirubin AST ALT Alkaline Phosphatase Troponin I High Sens 11.4 B-Natriuretic Peptide 44 Total Protein Albumin Globulin Albumin/Globulin Ratio Lipase TSH Nasal Adenovirus (PCR) Nasal B. parapertussis DNA (PCR) Nasal Coronavir 229E PCR Nasal Coronavir HKU1 PCR Nasal Coronavir NL63 PCR Nasal Coronavir OC43 PCR Nasal Enterovir/Rhinovir PCR Nasal Influenza B PCR Nasal Influenza A PCR Nasal Parainfluen 1 PCR Nasal Parainfluen 2 PCR Nasal Parainfluen 3 PCR Nasal Parainfluen 4 PCR Nasal RSV (PCR) Nasal B.pertussis DNA PCR Nasal C.pneumoniae (PCR) [place] Human Metapneumo PCR Nasal M.pneumoniae (PCR) Nasal SARS-CoV-2 (PCR) 04/21/23 04/22/23 04/22/23 20:51 06:02 06:02 WBC 7.0 RBC 5.22 Hgb 16.1 Hct 47.7 MCV 91.4 MCH 30.8 MCHC 33.8 RDW 14.2 Plt Count 188 MPV 11.8 H Neut # (Auto) 2.9 Lymph # (Auto) 3.1 [place] # (Auto) 0.8 Eos # (Auto) 0.1 Baso # (Auto) 0.0 Absolute Nucleated RBC 0.00 Nucleated RBC % 0.0 VBG pH VBG pCO2 VBG pO2 VBG HCO3 VBG Total CO2 VBG O2 Saturation VBG Base Excess Sodium 139 Potassium 4.1 Chloride 105 Carbon Dioxide 28 Anion Gap 6.0 BUN 17 Creatinine 1.0 Estimated GFR (MDRD) 71 L Glucose 114 H Calcium 8.9 Magnesium 2.0 Total Bilirubin AST ALT Alkaline Phosphatase Troponin I High Sens B-Natriuretic Peptide Total Protein Albumin Globulin Albumin/Globulin Ratio Lipase TSH 1.85 Nasal Adenovirus (PCR) Nasal B. parapertussis DNA (PCR) Nasal Coronavir 229E PCR Nasal Coronavir HKU1 PCR Nasal Coronavir NL63 PCR Nasal Coronavir OC43 PCR Nasal Enterovir/Rhinovir PCR Nasal Influenza B PCR Nasal Influenza A PCR Nasal Parainfluen 1 PCR Nasal Parainfluen 2 PCR Nasal Parainfluen 3 PCR Nasal Parainfluen 4 PCR Nasal RSV (PCR) Nasal B.pertussis DNA PCR Nasal C.pneumoniae (PCR) [place] Human Metapneumo PCR Nasal M.pneumoniae (PCR) Nasal SARS-CoV-2 (PCR) PD Medical Decision Making - ED course ED course: 82yM with pmh htn p/w gradually progressive soa, weakness and worsening cough X 2 weeks, found to have 2nd degree AVB on ekg. suspect mobitz type I even though computer is stating it is type II. patient is stable at present. pads have been placed and he is on the monitoring engineer. also with new oxygen requirement of 3L nasal cannula and o2 sat 94% on monitor. confirmed patient is full code. is health care proxy. cbc, abdominal panel, magnesium, tsh, vbg, bnp, trop all benign. vbg is slightly alkalemic, with increased oxygen and low co2, indicating hyperventilatory pattern. My wet read of CXR - no evidence of acute cardiopulmonary disease. Patient is covid positive on rvp. Plan to c/s cardiology with potential transfer for PPM evaluation and placement as well as oxygen therapy for covid induced hypoxia. d/w [facility] Dr. Branch air bag stripper - he agrees it makes sense to transfer for potential need for pacemaker placement in the setting of 2nd degree av block. plan is for [facility] to reach out to [facility] again tomorrow morning if he hasn't been accepted elsewhere. Transfer center will not put him down as accepted for now. we will continue to look for placement overnight. 1:10am - patient's HR dipped down to 36 briefly on the monitor. it is now back in the 50s. Note that overnight FAMILY LIFE COUNSELOR called [facility], [facility], [place] [facility], [employer] and /[facility]. waiting to hear back from [facility]. Plan is to call back /[facility] in AM. everywhere else is full/at capacity with boarders and not accepting new patient. 5:45am - HR dipped down into 30s. 0.5mg IV atropine ordered. 6am - HR dipped down to 27 and sustained in 30s for a stretch. Administering atropine. Faxing rhythm strip to . 6:15 - d/w transfer center RN Mary - she is recommending call back in a couple hours to touch base with cardiology again. plan to endorse to incoming daytime ED MD at 7am shift change. Departure - Departure Clinical Impression: Second degree atrioventricular block, Cough, Hypoxia, Shortness of breath, COVID Condition: Fair Forms: PCP List
[2023-04-21 21:54] LABS: B. PARAPERTUSSIS- RESP PCR PAN NOT DETECTED; B. PERTUSSIS- RESP PCR PANEL NOT DETECTED; C. PNEUMONIAE- RESP PCR PANEL NOT DETECTED; CORONAVIRUS 229E-RESP PCR NOT DETECTED; CORONAVIRUS HKU1-RESP PCR NOT DETECTED; CORONAVIRUS NL63-RESP PCR NOT DETECTED; CORONAVIRUS OC43-RESP PCR NOT DETECTED; HUMAN METAPNEUMOVIRUS NOT DETECTED; INFLUENZA A- RESP PCR PANEL NOT DETECTED; INFLUENZA B - RESP PCR PANEL NOT DETECTED; M. PNEUMONIAE- RESP PCR PANEL NOT DETECTED; PARAINFLUENZA VIRUS 1 NOT DETECTED; PARAINFLUENZA VIRUS 2 NOT DETECTED; PARAINFLUENZA VIRUS 3 NOT DETECTED; PARAINFLUENZA VIRUS 4 NOT DETECTED; RHINOVIRUS/ENTEROVIRUS NOT DETECTED; RSV- RESP PCR PANEL NOT DETECTED; SARS-CoV-2 -RESP PCR PANEL DETECTED
[2023-04-21 21:54] LABS: THYROID STIMULATING HORMONE 1.85 uIU/mL (0.34-5.60)
[2023-04-22] MEDS ORDERED: ACETAMINOPHEN 500 MG TABLET PO PRN (03:51)
[2023-04-22] MEDS ORDERED: ONDANSETRON 4 MG/2 ML VIAL IVP PRN (03:51)
[2023-04-22] MEDS ORDERED: ATROPINE 0.4 MG/ML VIAL IVP ONE (05:58)
[2023-04-22] MEDS ORDERED: ATROPINE ABBOJECT 1 MG/10 ML SYRINGE IVP ONE (05:59)
[2023-04-22] MEDS ORDERED: ATROPINE ABBOJECT 1 MG/10 ML SYRINGE IVP STA (06:02)
[2023-04-22 06:12] LABS: BASOPHILS % (AUTO) 0.3 %; EOSINOPHILS # (AUTO) 0.1 10^3/uL (0.0-0.7); EOSINOPHILS % (AUTO) 1.9 %; HCT - HEMATOCRIT 47.7 % (42.0-52.0); HGB - HEMOGLOBIN 16.1 g/dL (14.0-18.0); LYMPHOCYTES # (AUTO) 3.1 10^3/uL (1.5-3.5); LYMPHOCYTES % (AUTO) 44.5 %; MEAN CORPUSCULAR HEMOGLOBIN 30.8 pg (27.0-31.0); MEAN CORPUSCULAR HGB CONC 33.8 g/dL (32.0-36.0); MEAN CORPUSCULAR VOLUME 91.4 fL (80.0-94.0); MEAN PLATELET VOLUME 11.8 fL (7.4-11.4); MONOCYTES # (AUTO) 0.8 10^3/uL (0.0-1.0); MONOCYTES % (AUTO) 11.3 %; NEUTROPHILS # (AUTO) 2.9 10^3/uL (1.5-6.6); NEUTROPHILS % (AUTO) 41.6 %; PLT - PLATELET COUNT 188 10^3/uL (130-450); RED BLOOD COUNT 5.22 10^6/uL (4.70-6.10); RED CELL DISTRIBUTION WIDTH 14.2 % (12.0-15.0)
[2023-04-22 06:24] LABS: CALCIUM 8.9 mg/dL (8.5-10.3); POTASSIUM 4.1 mmol/L (3.5-4.5)
[2023-04-22] MEDS: amLODIPine 5 MG TABLET PO SCH (06:39)
[2023-04-22] MEDS: PANTOPRAZOLE 40 MG TABLET PO SCH (06:40)
[2023-04-22] MEDS: ENOXAPARIN 40 MG/0.4 ML SYRINGE SUBQ SCH (09:23)
[2023-04-22] MEDS: ALBUTEROL 1 PUFF INH SCH ×2 (14:12→17:15)
--- NOTE | 2023-04-22 14:16 | ED Physician Documentation ---
ED Addendum - Addendum Addendum: 04/22/23 14:14 The patient has been resting comfortably this morning. He had some breakfast. There was no word from other facilities about transfers as yet so I did allow him to have breakfast. As soon as we get word from another facility, will go down to clear liquids only or NPO. The patient's heart rhythm had been mainly stable through the night. He did go down lower at 1 point during the night, refer to Dr. Newell's note. This morning his heart rate has been adequate and blood pressure. He still has a general achy feeling and some coughing and dyspnea related to his respiratory infection. I can add on an albuterol inhaler 4 times a day. [facility] did have a cardiac bed available and I talked to the bid clerk there. However their EPS bid clerk was away until Wednesday so they were not able to accept the patient presuming it pacemaker needed. We will continue while looking for other facilities.
[2023-04-22] MEDS ORDERED: ALBUTEROL 1 PUFF INH PRN (17:25)
[2023-04-23] MEDS: amLODIPine 5 MG TABLET PO SCH (06:46)
[2023-04-23] MEDS: PANTOPRAZOLE 40 MG TABLET PO SCH (06:46)
[2023-04-23] MEDS: ENOXAPARIN 40 MG/0.4 ML SYRINGE SUBQ SCH (09:05)
--- NOTE | 2023-04-23 09:52 | ED Physician Documentation ---
ED Addendum - Addendum Addendum: 04/23/23 Patient received in signout. Patient remains boarding in the emergency department awaiting transfer to facility with cardiology and pacemaker capabilities. No events overnight.Patient is also COVID-positive. He is sitting up eating breakfast. is at the bedside. They are aware that no excepting facility has been found And we are continuing to work on transfer. Patient reportedly having some loose stools. Sent for stool culture and C. difficile.
[2023-04-23 13:38] VITALS: O2SAT 90
--- NOTE | 2023-04-23 15:34 | ED Physician Documentation ---
ED Addendum - Addendum Addendum: 04/23/23 15:[address] Chemo Weaver, liquor department manager in [place] and they will accept the patient. They will call me back with the hospitalist for formal acceptance. 04/23/23 15:[address] Jade at this time to [facility]. He is stable for transfer and cobras are completed. Disposition: Transferred to [facility] Condition: Stable
[2023-04-23 17:10] VITALS: BP 160/91
== END 2023-04-23 18:49 | disposition short-term general hospital (02) ==
LOC: ED 20:28
DX: U07.1 COVID-19 (principal); I44.1 Atrioventricular block, second degree; R09.02 Hypoxemia; I10 Essential (primary) hypertension; R19.7 Diarrhea, unspecified
CPT/HCPCS: 36415; 71046; 80048; 80053; 82803; 83690; 83735; 83880; 84443; 84484; 85025; 87045; 87046; 87427; 87493; 87633; 93005; 94640; 96372; 96374; 99285; A9270; J1650

== ENCOUNTER 2023-08-06 13:15 | Outpatient (CLI) | payer MEDICARE, OTHER | END 2023-08-06 13:30 | disposition home or self-care (01) | LOC: LAB.N 13:15 | PROVIDERS: ATTEND Physician Assistant Medical | DX: N39.0 Urinary tract infection, site not specified (principal) | CPT/HCPCS: 87077; 87086; 87181 ==

== ENCOUNTER 2023-08-19 10:33 | Outpatient (CLI) | payer MEDICARE, OTHER ==
[2023-08-19 10:48] LABS: BASOPHILS % (AUTO) 0.4 %; BILIRUBIN,URINE NEGATIVE (NEGATIVE); EOSINOPHILS # (AUTO) 0.2 10^3/uL (0.0-0.7); EOSINOPHILS % (AUTO) 2.2 %; GLUCOSE, URINE (UA) NEGATIVE (NEGATIVE); HGB - HEMOGLOBIN 16.2 g/dL (14.0-18.0); KETONES,URINE (UA) NEGATIVE (NEGATIVE); LEUKOCYTE ESTERASE, URINE NEGATIVE (NEGATIVE); LYMPHOCYTES # (AUTO) 2.9 10^3/uL (1.5-3.5); LYMPHOCYTES % (AUTO) 31.1 %; MEAN CORPUSCULAR HEMOGLOBIN 29.9 pg (27.0-31.0); MEAN CORPUSCULAR HGB CONC 31.8 g/dL (32.0-36.0); MEAN CORPUSCULAR VOLUME 94.1 fL (80.0-94.0); MONOCYTES # (AUTO) 0.8 10^3/uL (0.0-1.0); MONOCYTES % (AUTO) 7.9 %; NEUTROPHILS # (AUTO) 5.5 10^3/uL (1.5-6.6); NEUTROPHILS % (AUTO) 58.1 %; NITRITE,URINE NEGATIVE (NEGATIVE); OCCULT BLOOD,URINE NEGATIVE (NEGATIVE); PLT - PLATELET COUNT 213 10^3/uL (130-450); PROTEIN,URINE NEGATIVE (NEGATIVE); RED BLOOD COUNT 5.42 10^6/uL (4.70-6.10); RED CELL DISTRIBUTION WIDTH 13.2 % (12.0-15.0); UROBILINOGEN,URINE 0.2 (NORMAL) E.U./dL (NORMAL); WHITE BLOOD COUNT 9.4 x10^3/uL (4.8-10.8)
[2023-08-19 10:51] LABS: CLARITY,URINE CLEAR (CLEAR)
[2023-08-19 11:00] LABS: CALCIUM 9.9 mg/dL (8.5-10.3); CREATININE 1.1 mg/dL (0.6-1.3); POTASSIUM 4.5 mmol/L (3.5-4.5)
[2023-08-19 11:21] LABS: BACTERIA,URINE Moderate /HPF (None Seen); CASTS, URINE 0-2 Fine Granular /LPF; MUCUS,URINE Few Strands; RBC,URINE 0-5 /HPF (0-5); SQUAMOUS EPITHELIAL CELL,UR FEW Squamous (<= Few)
== END 2023-08-19 10:34 | disposition home or self-care (01) ==
LOC: LAB 10:33
PROVIDERS: ATTEND Physician Assistant Medical
DX: B08.4 Enteroviral vesicular stomatitis with exanthem (principal); R50.9 Fever, unspecified
CPT/HCPCS: 36415; 80048; 81001; 85025; 87086

== ENCOUNTER 2023-08-19 11:33 | Outpatient (CLI) | payer MEDICARE, OTHER ==
--- NOTE | 2023-08-19 12:42 | XRAY Report ---
PROCEDURE: Chest 2V INDICATIONS: FEVER TECHNIQUE: 2 views of the chest were acquired. COMPARISON: 04/21/2023. FINDINGS: Surgical changes and devices: Left chest wall generator with cardiac leads. Lungs and pleura: Hazy right basilar airspace opacity. Mediastinum: Mediastinal contours appear normal. Heart size is normal. Bones and chest wall: No suspicious bony lesions. Overlying soft tissues appear unremarkable. IMPRESSION: Hazy right basilar airspace opacity, concerning for developing infection in the setting of fever. Rec ommend follow-up x-ray in 1-2 months to ensure resolution. Reviewed by: Chemo Grossman MD on 08/19/2023 12:41 PM PDT Approved by: Chemo Grossman MD on 08/19/2023 12:41 PM PDT Station ID: [id number]
== END 2023-08-19 11:34 | disposition home or self-care (01) ==
LOC: DI 11:33
PROVIDERS: ATTEND Physician Assistant Medical
DX: R91.8 Other nonspecific abnormal finding of lung field (principal)

== ENCOUNTER 2023-09-02 08:49 | Outpatient (CLI) | payer MEDICARE, OTHER ==
[2023-09-02 09:04] LABS: BASOPHILS # (AUTO) 0.1 10^3/uL (0.0-0.1); BASOPHILS % (AUTO) 0.5 %; EOSINOPHILS # (AUTO) 0.1 10^3/uL (0.0-0.7); EOSINOPHILS % (AUTO) 1.4 %; HCT - HEMATOCRIT 52.8 % (42.0-52.0); HGB - HEMOGLOBIN 16.9 g/dL (14.0-18.0); LYMPHOCYTES # (AUTO) 3.5 10^3/uL (1.5-3.5); LYMPHOCYTES % (AUTO) 37.1 %; MEAN CORPUSCULAR HEMOGLOBIN 29.5 pg (27.0-31.0); MEAN CORPUSCULAR VOLUME 92.3 fL (80.0-94.0); MEAN PLATELET VOLUME 11.6 fL (7.4-11.4); MONOCYTES # (AUTO) 0.8 10^3/uL (0.0-1.0); NEUTROPHILS # (AUTO) 4.9 10^3/uL (1.5-6.6); NEUTROPHILS % (AUTO) 51.8 %; PLT - PLATELET COUNT 215 10^3/uL (130-450); RED BLOOD COUNT 5.72 10^6/uL (4.70-6.10); RED CELL DISTRIBUTION WIDTH 13.2 % (12.0-15.0); WHITE BLOOD COUNT 9.4 x10^3/uL (4.8-10.8)
[2023-09-02 09:20] LABS: ALBUMIN 4.4 g/dL (3.2-5.5); ALBUMIN/GLOBULIN RATIO 1.4 (1.0-2.2); ALKALINE PHOSPHATASE 92 IU/L (42-121); ALT ALANINE AMINOTRANSFERASE 40 IU/L (10-60); AST ASPARTATE AMINOTRANSFERASE 23 IU/L (10-42); BILIRUBIN,TOTAL 0.6 mg/dL (0.2-1.0); BUN - BLOOD UREA NITROGEN 25 mg/dL (6-20); CALCIUM 10.1 mg/dL (8.5-10.3); CARBON DIOXIDE - CO2 31 mmol/L (21-32); CHLORIDE 102 mmol/L (101-111); CHOL/HDL RATIO 5.4 (<5.0); CHOLESTEROL 150 mg/dL; CREATININE 1.2 mg/dL (0.6-1.3); GFR - MDRD 58 (>89); GLUCOSE 136 mg/dL (74-104); HDL CHOLESTEROL 28 mg/dL; LDL CHOLESTEROL,CALCULATED 94 mg/dL; LDL/HDL RATIO 3.4 (<3.6); POTASSIUM 4.5 mmol/L (3.5-4.5); SODIUM 139 mmol/L (135-145); TOTAL PROTEIN 7.5 g/dL (6.4-8.9); TRIGLYCERIDES 138 mg/dL (48-352); VLDL CHOLESTEROL 28 mg/dL
[2023-09-02 09:34] LABS: THYROID STIMULATING HORMONE 1.67 uIU/mL (0.34-5.60)
[2023-09-02 12:52] LABS: ESTIMATED AVERAGE GLUCOSE 143 mg/dL (70-100); HEMOGLOBIN A1c% 6.6 % (4.27-6.07)
== END 2023-09-02 08:50 | disposition home or self-care (01) ==
LOC: LAB 08:49
PROVIDERS: ATTEND Family Medicine
DX: I44.2 Atrioventricular block, complete (principal); E11.39 Type 2 diabetes mellitus with other diabetic ophthalmic complication; Z12.5 Encounter for screening for malignant neoplasm of prostate; R06.81 Apnea, not elsewhere classified; I10 Essential (primary) hypertension; E78.5 Hyperlipidemia, unspecified; Z95.0 Presence of cardiac pacemaker
CPT/HCPCS: 36415; 80053; 80061; 83036; 84443; 85025; G0103; 83721; 84153